=== PATIENT | male | born 1960 | race Two or more races ===

== ENCOUNTER 2017-07-27 13:28 | Emergency (ER) | payer OTHER ==
[~2017-07-27] VITALS: Ht 170.2 cm; Wt 72.6 kg
[2017-07-27 13:56] VITALS: BP 179/84
--- NOTE | 2017-07-27 14:18 | Emergency Room Report ---
History of Present Illness General Chief Complaint: Generalized Weakness Source: Patient Present Illness HPI 56yo male patient presents ER complaining of "not feeling good." Patient reports history of influenza 2 weeks ago and flu-like symptoms 1 week ago. Patient reports being seen by PCP 3x during this time for treatment of symptoms. Patient reports labs and CXR done with PCP and reports no acute findings found at that time. Patient reports he has work on Sunday and his PCP said if he does not feel better not to go to work; states he does not feel better. Patient reports subjective fever. Patient reports feeling better with drinking soda. Patient denies use of medication for relief of symptoms. Patient denies history of cardiac disease or HTN. Patient denies chest pain, SOB, nausea, vomiting, diarrhea. Allergies: Coded Allergies: No Known Allergies (Unverified , 07/27/17) Patient History Past Medical History: see triage record Social History: Reports: smoking - quit "years ago", alcohol use - "quit years ago", Denies: drug use Reviewed Nursing Documentation: PMH: Agreed, PSxH: Agreed Nursing Documentation-PMH Past Medical History: No Stated History Review of Systems All Other Systems: negative except mentioned in HPI Physical Exam Vital Signs Date Time Temp Pulse Resp B/P (MAP) Pulse Ox O2 Delivery O2 Flow Rate FiO2 07/27/17 13:41 98.1 105 18 179/84 97 Room Air Sp02 EP Interpretation: reviewed, normal General Appearance: no apparent distress, alert, GCS 15, non-toxic Head: normocephalic, atraumatic Eyes: bilateral eye normal inspection, bilateral eye PERRL, bilateral eye EOMI ENT: hearing grossly normal, normal pharynx, no angioedema, normal voice, TMs + canals normal, uvula midline, other - cerumen in bilateral ears Neck: full range of motion, supple/symm/no masses Respiratory: chest non-tender, lungs clear, normal breath sounds, speaking full sentences Cardiovascular #1: regular rate, rhythm, no edema Cardiovascular #2: 2+ carotid (R), 2+ carotid (L), 2+ radial (R), 2+ radial (L) Gastrointestinal: normal bowel sounds, non tender, soft, non-distended, no guarding, no rebound Genitourinary: no CVA tenderness Musculoskeletal: back normal, digits/nails normal, gait/station normal, normal range of motion, non-tender, no calf tenderness Neurologic: alert, oriented x3, responsive, 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 Delgado is my supervising Physician whom patient management has been discussed with. Diagnostic Impression: Primary Impression: Viral URI Additional Impressions: Elevated blood pressure reading Microscopic hematuria ER Course Pt presents to ED c/o "not feeling good". DDX considered but are not limited to influenza, viral URI, strep throat, rhinitis, sinusitis, otitis media, arrhythmia. VITAL SIGNS patient is afebrile, elevation in BP and tachycardia. Patient denies history of cardiac disease or HTN. Begin cardiac workup labs due to elevation in vital signs. Ordered EKG and CXR. ED COURSE: Patient reports feeling better following administration of medications and fluids. Discuss lab results with patient. (results below) CXR negative for acute disease EKG shows tachycardia, negative for arrhythmia, ST elevations Negative troponin Influenza swab negative UA shows microscopic hematuria; patient denies urine symptoms. Patient instructed of need to follow up with primary care provider for elevations in vital signs and microscopic hematuria; informed patient he needs further treatment and referral. Patient reports understanding and agreement to treatment plan. Patient reports feeling better following IV fluids. Patient ready to be discharged. Patient resting in chair comfortably, in no acute distress, nontoxic appearing. Patient discharged with mildly elevated pulse, informed patient of elevation and may be due to caffeine consumption, cardiac labs negative. Informed patient of strict ER precautions; patient instructed to ER immediately for any new or worsening of symptoms. Patient states understanding and agreement. Consult with Dr. Delgado; agrees to treatment plan and patient is ready for discharge. DISCHARGE: At this time pt is stable for d/c to home. Patient informed of elevated vital signs; instructed to follow -Rx given for Tylenol/Acetaminophen Patient to take medications as instructed Patient provided with work note. Will provide with patient care instructions and any necessary prescriptions. Care plan and follow-up instructions provided. Patient instructed to follow-up with primary care provider in 3 - 5 days. Patient questions asked and answered. ER precautions given. Patient instructed to return to ER immediately for any new or worsening of symptoms including but not limited to increasing SOB, persistent fever. Labs Test 07/27/17 14:58 White Blood Count 17.1 K/UL (4.8-10.8) Red Blood Count 5.42 M/UL (4.70-6.10) Hemoglobin 15.8 G/DL (14.2-18.0) Hematocrit 46.6 % (42.0-52.0) Mean Corpuscular Volume 86 FL (80-99) Mean Corpuscular Hemoglobin 29.1 PG (27.0-31.0) Mean Corpuscular Hemoglobin Concent 33.9 G/DL (32.0-36.0) Red Cell Distribution Width 12.1 % (11.6-14.8) Platelet Count 545 K/UL (150-450) Mean Platelet Volume 5.7 FL (6.5-10.1) Neutrophils (%) (Auto) 89.6 % (45.0-75.0) Lymphocytes (%) (Auto) 6.1 % (20.0-45.0) Monocytes (%) (Auto) 3.8 % (1.0-10.0) Eosinophils (%) (Auto) 0.1 % (0.0-3.0) Basophils (%) (Auto) 0.4 % (0.0-2.0) Urine Color Yellow Urine Appearance Clear Urine pH 5 (4.5-8.0) Urine Specific [place] 1.020 (1.005-1.035) Urine Protein Negative (NEGATIVE) Urine Glucose (UA) Negative (NEGATIVE) Urine Ketones Negative (NEGATIVE) Urine Occult Blood 1+ (NEGATIVE) Urine Nitrite Negative (NEGATIVE) Urine Bilirubin Negative (NEGATIVE) Urine Urobilinogen Normal MG/DL (0.0-1.0) Urine Leukocyte Esterase 1+ (NEGATIVE) Urine RBC 0-2 /HPF (0 - 0) Urine WBC 0-2 /HPF (0 - 0) Urine Squamous Epithelial Cells None /LPF (NONE/OCC) Urine Bacteria Occasional /HPF (NONE) Sodium Level 136 MMOL/L (136-145) Potassium Level 3.4 MMOL/L (3.5-5.1) Chloride Level 100 MMOL/L (98-107) Carbon Dioxide Level 26 MMOL/L (21-32) Anion Gap 10 mmol/L (5-15) Blood Urea Nitrogen 10 mg/dL (7-18) Creatinine 1.0 MG/DL (0.55-1.30) Estimat Glomerular Filtration Rate > 60 mL/min (>60) Glucose Level 129 MG/DL (74-106) Calcium Level 9.7 MG/DL (8.5-10.1) Total Bilirubin 0.4 MG/DL (0.2-1.0) Aspartate Amino Transf (AST/SGOT) 19 U/L (15-37) Alanine Aminotransferase (ALT/SGPT) 35 U/L (12-78) Alkaline Phosphatase 79 U/L (46-116) Total Creatine Kinase 61 U/L (26-308) Creatine Kinase MB < 0.5 NG/ML (0.0-3.6) Creatine Kinase MB Relative Index 0.8 Troponin I 0.000 ng/mL (0.000-0.056) Pro-B-Type Natriuretic Peptide 85 pg/mL (0-125) Total Protein 7.2 G/DL (6.4-8.2) Albumin 3.9 G/DL (3.4-5.0) Globulin 3.3 g/dL Albumin/Globulin Ratio 1.2 (1.0-2.7) EKG Diagnostic Results Rate: tachycardiac Rhythm: NSR ST Segments: no acute changes Other Impression Left axis deviation ASA given to the pt in ED: No PA Scribe Text Armen Stewart PA-C Rhythm Strip Diag. Results EP Interpretation: yes Rate: 118 Rhythm: NSR, no PVC's, no ectopy PA Scribe Text Armen Stewart PA-C Chest X-Ray Diagnostic Results Chest X-Ray Diagnostic Results : Chest X-Ray Ordered: Yes # of Views/Limited/Complete: 1 View Indication: Other EP Interpretation: Yes PA Xray: Interpretation reviewed, by supervising MD, and agrees with findings. Interpretation: no consolidation, no effusion, no pneumothorax, no acute cardiopulmonary disease PA Scribe Text Armen Stewart PA-C Last Vital Signs Date Time Temp Pulse Resp B/P (MAP) Pulse Ox O2 Delivery O2 Flow Rate FiO2 07/27/17 13:56 98.1 18 179/84 97 Room Air 07/27/17 13:41 105 Disposition: HOME, SELF-CARE Condition: Stable Scripts Acetaminophen* (TYLENOL EXTRA STRENGTH*) 500 Mg Tablet 500 MG ORAL Q8H Y for Prn Headache/Temp > 101, #30 TAB 0 Refills Prov: Raleigh Stewart 07/27/17 Patient Instructions: Hypertension, [id number], Upper Respiratory Infection, Adult, [id number] Additional Instructions: Followup with primary care provider in 3 -5 days. Take medications as directed. Patient questions asked and answered. ER precautions given, patient instructed to return to ER immediately for any new or worsening of symptoms. Raleigh Stewart Jul 27, 2017 14:18
[2017-07-27] MEDS ORDERED: TYLENOL EXTRA500 MG ORAL (14:25)
[2017-07-27] MEDS ORDERED: Sodium Chloride 500ML 500 ML IV ONE (14:34)
[2017-07-27 15:19] LABS: HEMATOCRIT 46.6 % (42.0-52.0); HEMOGLOBIN 15.8 G/DL (14.2-18.0); MEAN CORPUSCULAR VOLUME 86 FL (80-99); PLATELET COUNT 545 K/UL (150-450); RED BLOOD COUNT 5.42 M/UL (4.70-6.10); RED CELL DISTRIBUTION WIDTH 12.1 % (11.6-14.8); WHITE BLOOD COUNT 17.1 K/UL (4.8-10.8)
[2017-07-27 15:20] LABS: APPEARANCE,URINE CLEAR; BILIRUBIN, URINE NEGATIVE (NEGATIVE); GLUCOSE, URINE (UA) NEGATIVE (NEGATIVE); KETONES,URINE NEGATIVE (NEGATIVE); LEUKOCYTE ESTERASE ,URINE 1+ (NEGATIVE); NITRITE,URINE NEGATIVE (NEGATIVE); PH,URINE 5 (4.5-8.0); PROTEIN,URINE NEGATIVE (NEGATIVE); UROBILINOGEN,URINE NORMAL MG/DL (0.0-1.0)
[2017-07-27 15:22] LABS: BASOPHILS % (AUTO) 0.4 % (0.0-2.0); EOSINOPHILS % (AUTO) 0.1 % (0.0-3.0); LYMPHOCYTES % (AUTO) 6.1 % (20.0-45.0); MONOCYTES % (AUTO) 3.8 % (1.0-10.0); NEUTROPHILS % (AUTO) 89.6 % (45.0-75.0)
[2017-07-27 15:23] LABS: COLOR,URINE YELLOW
[2017-07-27 15:40] LABS: ANION GAP 10 mmol/L (5-15); BLOOD UREA NITROGEN 10 mg/dL (7-18); CALCIUM 9.7 MG/DL (8.5-10.1); CARBON DIOXIDE 26 MMOL/L (21-32); CHLORIDE 100 MMOL/L (98-107); POTASSIUM 3.4 MMOL/L (3.5-5.1); SODIUM 136 MMOL/L (136-145)
[2017-07-27 15:52] LABS: ALANINE AMINOTRANSFERASE 35 U/L (12-78); ALBUMIN 3.9 G/DL (3.4-5.0); ALBUMIN/GLOBULIN RATIO 1.2 (1.0-2.7); ALKALINE PHOSPHATASE 79 U/L (46-116); ASPARTATE AMINO TRANSFERASE 19 U/L (15-37); BILIRUBIN,TOTAL 0.4 MG/DL (0.2-1.0); CKMB < 0.5 NG/ML (0.0-3.6); CREATINE KINASE 61 U/L (26-308)
--- NOTE | 2017-07-27 15:56 | Diagnostic Imaging Report ---
Indication: Chest Technique: One view of the chest Comparison: none Findings: Lungs and pleural spaces are clear. Heart size is normal Impression: No acute process
[2017-07-27 17:35] VITALS: BP 145/92
--- NOTE | 2017-07-29 15:17 | Cardiology Report ---
APPROVED REPORT EKG Measurement Heart [id number] Sinus tachycardia Left axis deviation Abnormal ECG
== END 2017-07-27 19:14 | disposition home or self-care (01) ==
LOC: EMR 13:50
DX: J06.9 Acute upper respiratory infection, unspecified (principal); B34.9 Viral infection, unspecified; R03.0 Elevated blood-pressure reading, without diagnosis of hypertension; R53.1 Weakness; R31.29 Other microscopic hematuria; Z87.891 Personal history of nicotine dependence
CPT/HCPCS: 36415; 71045; 80053; 81001; 82550; 82553; 83880; 84484; 85025; 86710; 93005; 96360; 99284